=== PATIENT | male | born 1975 | race Caucasian/White ===

== ENCOUNTER 2020-01-30 14:55 | Emergency (ER) | payer OTHER ==
[~2020-01-30] VITALS: Ht 172.7 cm; Wt 73.0 kg
[2020-01-30] MEDS ORDERED: HYDROcodone/APAP 7.5/325MG 1 TAB TABLET PO ONE (15:30)
[2020-01-30] MEDS ORDERED: HYDR-3165 PO (15:47)
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
[2020-01-30] MEDS ORDERED: DIPH,PERTUSS(ACELL),TET VAC/PF 0.5 ML SYRINGE. VAX IM ONE ×2 (16:02→16:30)
[2020-01-30 17:48] VITALS: BP 138/100
== END 2020-01-30 17:05 | disposition home or self-care (01) ==
LOC: ER 14:55
DX: S42.021A Displaced fracture of shaft of right clavicle, initial encounter for closed fracture (principal); S80.811A Abrasion, right lower leg, initial encounter; S40.811A Abrasion of right upper arm, initial encounter; V28.4XXA Motorcycle driver injured in noncollision transport accident in traffic accident, initial encounter; Y93.55 Activity, bike riding; Y92.488 Other paved roadways as the place of occurrence of the external cause; Y99.8 Other external cause status
CPT/HCPCS: 29240; 73030; 90471; 90715; 99283

== ENCOUNTER 2020-09-02 07:11 | Emergency (ER) | payer OTHER ==
[~2020-09-02] VITALS: Ht 165.1 cm; Wt 75.0 kg
[~2020-09-02 07:11] MED LIST: HYDR-3165 PO
[2020-09-02 07:20] VITALS: BP 128/94
[2020-09-02] MEDS ORDERED: NEOMY/BACITR/POLYMYXIN OINT PACKET. TP ONE (08:00)
--- NOTE | 2020-09-02 08:00 | PHYS DOC ---
Past History Past Medical History: No Pertinent History Past Surgical History: Other Additional Past Surgical Histo: multiple orthopedic procedures Alcohol Use: Occasionally Adult General Chief Complaint Chief Complaint: LACERATION/AVULSION [facility] HPI Patient is a 45-year-old male who presents with laceration. Injury occurred just prior to arrival when cutting lunchmeat with kitchen knife. Patient has 1.5 cm laceration to dorsal portion of left index finger in between DIP and nailbed matrix without any muscle tendon ligament and/or nailbed matrix involvement. Patient's tetanus vaccination is up-to-date Review of Systems Review of Systems Fourteen body systems of review of systems have been reviewed. See HPI for pertinent positives and negative responses, other escobar all other systems are negative, non-pertinent or non-contributory Allergies Allergies Allergies Coded Allergies Type Severity Reaction Last Updated Verified No Known Drug Allergies 09/02/20 No Physical Exam Physical Exam Constitutional: Well developed, well nourished, no acute distress, non-toxic appearance. HENT: Normocephalic, atraumatic, bilateral external ears normal, oropharynx moist, no oral exudates, nose normal. Eyes: PERRLA, EOMI, conjunctiva normal, no discharge. Neck: Normal range of motion, no tenderness, supple, no stridor. Cardiovascular: Heart rate regular, sinus rhythm, no murmurs rubs or gallops Lungs & Thorax: Bilateral breath sounds clear to auscultation Abdomen: Bowel sounds normal, soft, no tenderness, no masses, no pulsatile masses. Nonsurgical abdomen, no peritoneal signs Skin: Warm, dry, no erythema, no rash. Back: No tenderness, no CVA tenderness. Extremities: No tenderness, no cyanosis, no clubbing, ROM intact, no edema. Neurologic: Alert and oriented X 3, normal motor & sensory function, no focal deficits noted. Medial, radial, and ulnar nerves of left upper extremity intact. No foreign body, no muscle/tendon/ligamentous injury or involvement. 1.5 cm well approximated laceration involving epidermis and dermis only Psychologic: Affect normal, judgement normal, mood normal. Current Patient Data Vital Signs Vital Signs Date Time Temp Pulse Resp B/P (MAP) Pulse Ox O2 Delivery O2 Flow Rate FiO2 09/02/20 07:20 98.0 100 16 128/94 (105) 95 Room Air EKG EKG [] Radiology/Procedures Radiology/Procedures [] Heart Score Risk Factors: Risk Factors: DM, Current or recent (<one month) smoker, HTN, HLP, family history of CAD, obesity. Risk Scores: Risk Factors: DM, Current or recent (<one month) smoker, HTN, HLP, family history of CAD, obesity. Course & Med Decision Making Course & Med Decision Making Pertinent Labs and Imaging studies reviewed. (See chart for details) Simple laceration repaired with x2 simple interrupted five-point 0 Prolene sutures. Patient tolerated this well Advised patient to have these removed in upcoming 7 to 10 days Wound care instructions advised. All questions and concerns addressed prior to ER departure in stable condition Dragon Disclaimer Dragon Disclaimer This electronic medical record was generated, in whole or in part, using a voice recognition dictation system. Laceration Repair Lac Repair Indication: Finger laceration Procedure: The patient's finger was evaluated and irrigated with copious amounts of tap water. The patient was placed in the appropriate position and the well approximated borders of the laceration were cleansed with an alcohol pad. Then, a total of 1 cc 2% lidocaine was administered in each side of skin borders. The laceration was then sutured shut with x2 simple interrupted 5.0 Prolene nonabsorbable sutures.The wound area was then covered in triple antibiotic ointment and dressed appropriately with discharge instructions to follow-up with us or other healthcare provider for removal in 7 to 10 days Total repaired wound length: 1.5 cm The patient tolerated the procedure no reported and/or observed complications, estimated blood loss 0. Patient maintained neurovascularly intact after procedure Departure Departure: Impression: Primary Impression: Laceration of finger of left hand Disposition: 01 DC HOME SELF CARE/HOMELESS Condition: STABLE Referrals: LIZ VAUGHN (PCP) Patient Instructions: Laceration Care, Adult Additional Instructions: As discussed prior to ER departure, please contact your primary care physician to have sutures removed in upcoming 7 to 10 days time If any concerning signs or symptoms of infection or other findings that concern you regarding wound healing of your left finger occur prior to outpatient follow-up please do not hesitate to come back for repeat evaluation It was a pleasure to take care of you today and I wish you a speedy recovery LIU VALLE DO Sep 02, 2020 08:00
== END 2020-09-02 08:05 | disposition home or self-care (01) ==
LOC: ER 07:11
DX: S61.211A Laceration without foreign body of left index finger without damage to nail, initial encounter (principal); W26.0XXA Contact with knife, initial encounter; Y93.89 Activity, other specified; Y92.89 Other specified places as the place of occurrence of the external cause; Y99.8 Other external cause status
CPT/HCPCS: 12001; 99282; 99283